=== PATIENT | male | born 1975 | race American Indian/Alaskan Native ===

== ENCOUNTER 2017-06-06 13:57 | Emergency (ER) | payer SELFPAY ==
[2017-06-06] MEDS ORDERED: FUL-GLO OP ONE ×2 (15:05→17:27)
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
[2017-06-06] MEDS ORDERED: NORCO 5/325 PO ONE (17:34)
[2017-06-06 18:39] VITALS: BP 142/94
== END 2017-06-06 17:35 | disposition other institution (70) ==
LOC: ED 13:57
DX: H20.9 Unspecified iridocyclitis (principal); S05.02XA Injury of conjunctiva and corneal abrasion without foreign body, left eye, initial encounter; J45.909 Unspecified asthma, uncomplicated; F17.200 Nicotine dependence, unspecified, uncomplicated; V89.2XXA Person injured in unspecified motor-vehicle accident, traffic, initial encounter; Y93.89 Activity, other specified; Y92.9 Unspecified place or not applicable; Y99.9 Unspecified external cause status